=== PATIENT | female | born 1980 | race Caucasian/White ===

== ENCOUNTER 2016-11-11 20:36 | Emergency (ER) | payer MEDICAID ==
[~2016-11-11] VITALS: Ht 172.7 cm; Wt 85.9 kg
[~2016-11-11 20:36] MED LIST: FLUO20CA19 PO; LITH300T PO
[2016-11-11] MEDS ORDERED: LORazepam 1MG TABLET PO ONE (21:30)
[2016-11-11] MEDS ORDERED: PROCHLORPERAZINE 10MG TABLET PO ONE (21:30)
[2016-11-11] MEDS ORDERED: DIPHENHYDRAMINE 25 MG CAPSULE PO ONE (21:30)
[2016-11-11] MEDS ORDERED: IBUPROFEN 200 MG TABLET PO ONE (21:30)
[2016-11-11 21:39] LABS: DAU SCREEN DISCLAIMER
[2016-11-11] MEDS ORDERED: IBUPROFEN 200 MG TABLET ONE (21:54)
[2016-11-11] MEDS ORDERED: DIPHENHYDRAMINE 25 MG CAPSULE ONE (21:54)
[2016-11-11] MEDS ORDERED: LORazepam 1MG TABLET ONE (21:54)
[2016-11-11 22:16] LABS: HEMOGLOBIN 14.4 g/dL (11.7-16.4)
[2016-11-11 22:25] LABS: BLOOD UREA NITROGEN 9 mg/dL (7-18)
[2016-11-11 22:31] LABS: ACETAMINOPHEN 3 mcg/mL (10-30); ASPARTATE AMINO TRANSFERASE 16 U/L (15-37)
[2016-11-11] MEDS ORDERED: FLUO40CA9 PO (22:54)
[2016-11-11] MEDS ORDERED: CLON1TAB23 PO (22:55)
[2016-11-11] MEDS ORDERED: MIRT15TA PO (22:56)
[2016-11-11] MEDS ORDERED: AMPH30TA2 PO (22:56)
[2016-11-11] MEDS ORDERED: BUTA1CAP30 PO (22:59)
[2016-11-12] MEDS ORDERED: ONDANSETRON ODT 4 MG PO PRN (01:30)
[2016-11-12] MEDS ORDERED: SUMATRIPTAN 6MG/0.5ML SQ ONE ×3 (03:10→12:59)
[2016-11-12] MEDS ORDERED: ACETAMINOPHEN 325 MG TABLET ONE ×2 (03:10→07:56)
[2016-11-12] MEDS: SUMATRIPTAN 6MG/0.5ML SQ PRN ×3 (03:41→13:05)
[2016-11-12] MEDS: ACETAMINOPHEN 325 MG TABLET PO PRN ×2 (03:42→08:00)
[2016-11-12] MEDS ORDERED: FLUOXETINE 20 MG CAPSULE PO SCH (09:00)
[2016-11-12] MEDS ORDERED: BUTALB/APAP/CAFFEINE 50MG/325MG/40MG PO ONE (11:30)
[2016-11-12] MEDS ORDERED: BUTALB/APAP/CAFFEINE 50MG/325MG/40MG PO PRN (15:00)
[2016-11-12] MEDS ORDERED: SODIUM CHLORIDE 0.9% 1,000 ML IV SCH (16:58)
[2016-11-12] MEDS ORDERED: DIPHENHYDRAMINE 50 MG/ML, 1ML ONE (17:44)
[2016-11-12] MEDS ORDERED: KETOROLAC 30 MG/1 ML ONE (17:44)
[2016-11-12] MEDS ORDERED: KETOROLAC 30 MG/1 ML IVPush PRN (18:00)
[2016-11-12] MEDS ORDERED: VALPROATE SODIUM 500 MG in DEXTROSE 5% 100 ML IV ONE (18:00)
[2016-11-12] MEDS ORDERED: PROMETHAZINE 25 MG/ML, 1ML IM ONE (18:00)
[2016-11-12] MEDS ORDERED: SODIUM CHLORIDE 0.9% 1,000ML IVBOLUS ONE (18:00)
[2016-11-12] MEDS ORDERED: DIPHENHYDRAMINE 50 MG/ML, 1ML IVPush ONE (18:00)
[2016-11-12] MEDS ORDERED: LITHIUM CARBONATE 300 MG TABLET.ER PO SCH (21:00)
[2016-11-12 21:03] VITALS: BP 115/80
== END 2016-11-12 22:01 ==
LOC: ED 22:23 → EDIP 11-12 00:53 → UNDOADMOB 11-12 00:53 → SUATTDRO 11-12 01:03 → ED 11-12 22:01
DX: F32.9 Major depressive disorder, single episode, unspecified (principal)
CPT/HCPCS: 36415; 80053; 80178; 80307; 80329; 81003; 84439; 84443; 84703; 85025; 96365; 96366; 96372; 96375; 99285; J1200; J1885; J3030; J7030; Q0163; Q0164; G0480

== ENCOUNTER 2017-07-07 20:08 | Emergency (ER) | payer MEDICAID ==
[~2017-07-07] VITALS: Ht 172.7 cm; Wt 71.8 kg
[~2017-07-07 20:08] MED LIST changes: +AMPH30TA2 PO; +BUTA1CAP30 PO; +CLON1TAB23 PO; +FLUO40CA9 PO; -LITH300T PO; +LITH300T30 PO; +MIRT15TA PO
[2017-07-07 20:11] VITALS: BP 119/85
== END 2017-07-07 21:54 | disposition home or self-care (01) ==
LOC: ED 21:48
DX: J01.01 Acute recurrent maxillary sinusitis (principal); J02.8 Acute pharyngitis due to other specified organisms; F31.9 Bipolar disorder, unspecified; G43.909 Migraine, unspecified, not intractable, without status migrainosus
CPT/HCPCS: 71020; 99284

== ENCOUNTER 2017-09-14 09:50 | Emergency (ER) | payer MEDICAID ==
[~2017-09-14] VITALS: Ht 172.7 cm; Wt 70.2 kg
[2017-09-14] MEDS ORDERED: SODIUM CHLORIDE 0.9% 1,000 ML IV ONE (14:19)
[2017-09-14] MEDS ORDERED: SODIUM CHLORIDE 0.9% 1,000ML IVBOLUS ONE (14:30)
[2017-09-14] MEDS ORDERED: ONDANSETRON 2MG/ML, 2ML IVPush ONE (14:30)
[2017-09-14] MEDS ORDERED: SODIUM CHLORIDE FLUSH 10ML SYR IVF ONE (14:30)
[2017-09-14] MEDS ORDERED: ONDANSETRON 2MG/ML, 2ML ONE (14:32)
[2017-09-14 14:43] LABS: MICROSCOPIC AUTO
[2017-09-14 14:46] LABS: CULTURE INDICATED? YES
[2017-09-14 15:02] LABS: BASOPHILS # (AUTO) 0.02 x10^3/uL (0-0.1); BASOPHILS % (AUTO) 1 % (0-1); EOSINOPHILS # (AUTO) 0.05 x10^3/uL (0-0.4); EOSINOPHILS % (AUTO) 1 % (1-7); LYMPHOCYTES # (AUTO) 0.92 x10^3/uL (1-3.4); LYMPHOCYTES % (AUTO) 23 % (22-44); MD NO; MEAN CORPUSCULAR HEMOGLOBIN 30.4 pg (27.0-34.8); MEAN CORPUSCULAR HGB CONC 33.8 g/dL (32.4-35.8); MEAN PLATELET VOLUME 8.5 fL (7.4-10.4); MONOCYTES # (AUTO) 0.32 x10^3/uL (0.2-0.8); MONOCYTES % (AUTO) 8 % (2-9); NEUTROPHILS # (AUTO) 2.75 x10^3/uL (1.8-6.8); NEUTROPHILS % (AUTO) 68 % (42-75); PLATELET COUNT 169 x10^3/uL (130-400); RED BLOOD COUNT 5.09 x10^6/uL (3.82-5.3); RED CELL DISTRIBUTION WIDTH 12.9 % (9.6-15.2)
[2017-09-14 15:09] LABS: ALBUMIN 3.7 g/dL (3.4-5.0); ANION GAP 8 mmol/L (5-15); CALCIUM 8.4 mg/dL (8.5-10.1); CHLORIDE 108 mmol/L (98-107); CREATININE 0.69 mg/dL (0.55-1.02)
[2017-09-14 15:12] LABS: CLOSTRIDIUM DIFFICILE ANTIGEN NEGATIVE; CLOSTRIDIUM DIFFICILE TOXIN NEGATIVE (Negative)
[2017-09-14 15:16] LABS: ALANINE AMINOTRANSFERASE 54 U/L (12-78); ALKALINE PHOSPHATASE 146 U/L (45-117); BILIRUBIN,TOTAL 0.3 mg/dL (0.2-1.0); TOTAL PROTEIN 6.7 g/dL (6.4-8.2)
[2017-09-14 16:13] VITALS: BP 100/66
== END 2017-09-14 17:04 | disposition home or self-care (01) ==
LOC: ED 14:38
DX: J01.00 Acute maxillary sinusitis, unspecified (principal); K52.9 Noninfective gastroenteritis and colitis, unspecified; R82.99 Other abnormal findings in urine
CPT/HCPCS: 36415; 80053; 81001; 83690; 85025; 86308; 87086; 87324; 89055; 96374; 99284; J2405; J7030

== ENCOUNTER 2018-02-24 18:09 | Emergency (ER) | payer MEDICAID ==
[~2018-02-24] VITALS: Ht 172.7 cm; Wt 74.0 kg
[2018-02-24] MEDS ORDERED: SODIUM CHLORIDE 0.9% 1,000ML IVBOLUS ONE (18:30)
[2018-02-24] MEDS ORDERED: SODIUM CHLORIDE FLUSH 10ML SYR IVF ONE (18:30)
[2018-02-24] MEDS ORDERED: PLEASE ENTER HEIGHT AND WEIGHT MC SCH (18:30)
[2018-02-24 19:07] LABS: ALBUMIN 3.3 g/dL (3.4-5.0); ANION GAP 9 mmol/L (5-15); CALCIUM 7.8 mg/dL (8.5-10.1); CHLORIDE 113 mmol/L (98-107); SALICYLATE LEVEL 1.9 mg/dL (2.8-20.0)
[2018-02-24 19:10] LABS: ACETAMINOPHEN 74 mcg/mL (10-30); ALANINE AMINOTRANSFERASE 52 U/L (12-78); ALKALINE PHOSPHATASE 89 U/L (45-117); BILIRUBIN,TOTAL 0.4 mg/dL (0.2-1.0); CREATININE 0.69 mg/dL (0.55-1.02)
[2018-02-24 19:12] LABS: BASOPHILS # (AUTO) 0.05 x10^3/uL (0-0.1); BASOPHILS % (AUTO) 0 % (0-1); EOSINOPHILS # (AUTO) 0.41 x10^3/uL (0-0.4); EOSINOPHILS % (AUTO) 4 % (1-7); LYMPHOCYTES % (AUTO) 35 % (22-44); MD NO; MEAN CORPUSCULAR HEMOGLOBIN 30.9 pg (27.0-34.8); MEAN CORPUSCULAR HGB CONC 33.5 g/dL (32.4-35.8); MEAN CORPUSCULAR VOLUME 92.2 fL (80-100); MEAN PLATELET VOLUME 8.2 fL (7.4-10.4); MONOCYTES # (AUTO) 0.81 x10^3/uL (0.2-0.8); MONOCYTES % (AUTO) 8 % (2-9); NEUTROPHILS % (AUTO) 53 % (42-75); PLATELET COUNT 256 x10^3/uL (130-400); RED BLOOD COUNT 4.51 x10^6/uL (3.82-5.3); RED CELL DISTRIBUTION WIDTH 13.3 % (9.6-15.2)
[2018-02-24 19:23] LABS: INTERNATIONAL NORMALIZED RATIO 0.91 (0.93-1.1); PROTHROMBIN TIME 9.4 Seconds (9.6-11.5)
[2018-02-24 21:46] LABS: AMPHETAMINE SCREEN, URINE Negative (Negative); BARBITURATE SCREEN, URINE Positive (Negative); BENZODIAZEPINE SCREEN, URINE Negative (Negative); CANNABINOID SCREEN, URINE Negative (Negative); COCAINE SCREEN, URINE Negative (Negative); METHADONE SCREEN, URINE Negative (Negative); OPIATE SCREEN, URINE Negative (Negative)
[2018-02-24 22:15] VITALS: BP 104/69
[2018-02-25] MEDS ORDERED: DOCUSATE 100 MG CAPSULE PO PRN (02:30)
[2018-02-25] MEDS ORDERED: ONDANSETRON ODT 4 MG PO PRN (02:30)
[2018-02-25 05:37] LABS: ANION GAP 5 mmol/L (5-15); CHLORIDE 113 mmol/L (98-107)
[2018-02-25 05:42] LABS: ACETAMINOPHEN 4 mcg/mL (10-30); ALANINE AMINOTRANSFERASE 43 U/L (12-78); ALKALINE PHOSPHATASE 75 U/L (45-117); BILIRUBIN,TOTAL 0.2 mg/dL (0.2-1.0); CREATININE 0.62 mg/dL (0.55-1.02); TOTAL PROTEIN 5.4 g/dL (6.4-8.2)
[2018-02-25] MEDS ORDERED: TEMPLATE NON-FORMULARY MED. (Clonazepam** 1 MG) PO SCH (09:00)
[2018-02-25] MEDS ORDERED: TEMPLATE NON-FORMULARY MED. (Fluoxetine Hcl** (Prozac**) 40 MG) PO SCH (09:00)
[2018-02-25] MEDS ORDERED: MIRTAZAPINE 15 MG TABLET PO SCH (21:00)
[2018-02-25] MEDS ORDERED: LITHIUM CARBONATE 900 MG PO SCH (21:00)
== END 2018-02-25 09:25 | disposition home or self-care (01) ==
LOC: ED 19:32 → INTOOBSV 21:54 → EDIP 21:54 → UNDOADMOB 21:54 → ED 02-25 09:25
DX: T39.1X1A Poisoning by 4-Aminophenol derivatives, accidental (unintentional), initial encounter (principal); R45.851 Suicidal ideations; G43.909 Migraine, unspecified, not intractable, without status migrainosus; F32.9 Major depressive disorder, single episode, unspecified; R79.1 Abnormal coagulation profile; Y92.9 Unspecified place or not applicable
CPT/HCPCS: 36415; 80053; 80178; 80307; 80329; 85025; 85610; 85730; 93005; 96360; 99285; J7030; G0480